=== PATIENT | male | born 1990 | race Caucasian/White ===

== ENCOUNTER → 2018-08-06 | Outpatient (CLI) | payer BC ==
--- NOTE | 2018-08-06 18:48 | RADIOLOGY REPORT (SQ) ---
EXAM DESCRIPTION: U/S ABDOMEN LIMITED W/O DOP COMPLETED DATE/TIME: 08/06/2018 6:30 pm REASON FOR STUDY: R10.11 RIGHT UPPER QUADRANT PAIN R11.2 NAUSEA WITH VOMITING, UNSPECIFIED R10.11 R IGHT UPPER QUADRANT PAIN R11.2 NAUSEA WITH VOMITING, UNSPECIFIED COMPARISON: None. TECHNIQUE: Dynamic and static grayscale images acquired of the abdomen and recorded on PACS. Additio nal selected color Doppler and spectral images recorded. LIMITATIONS: None. FINDINGS: PANCREAS: No masses. Visualized pancreatic duct normal caliber. LIVER: No masses. Echotexture normal. LIVER VASCULATURE: Normal directional flow of the main portal vein and hepatic veins. GALLBLADDER: Multiple large gallstones. Contracted gallbladder. ULTRASOUND-DETECTED MÁRQUEZ'S SIGN: Negative. INTRAHEPATIC DUCTS AND COMMON DUCT: CBD and intrahepatic ducts normal caliber. No filling defects. INFERIOR VENA CAVA: Not imaged. AORTA: No aneurysm. RIGHT KIDNEY: Normal size, 10.1 cm. Normal echogenicity. No solid or suspicious masses. No hydroneph rosis. No calcifications. PERITONEAL AND RIGHT PLEURAL SPACE: No ascites or effusions. OTHER: No other significant findings. IMPRESSION: Contracted gallbladder with stones. TECHNICAL DOCUMENTATION: JOB ID: [id number] [employer]- All Rights Reserved Reading location - IP/workstation name: [email or web address]
== END ==
LOC: RAD 17:42
PROVIDERS: ATTEND Internal Medicine Gastroenterology
DX: R10.11 Right upper quadrant pain (principal); R11.2 Nausea with vomiting, unspecified
CPT/HCPCS: 76705

== ENCOUNTER 2018-08-07 09:49 | Day surgery (SDC) | payer BC ==
[2018-08-07] MEDS ORDERED: RINGERS SOLUTION,LACTATED 1,000 ML IV ONE (10:16)
--- NOTE | 2018-08-07 10:36 | ER Document Report ---
ED General - General Chief Complaint: Abdominal Problem Stated Complaint: NAUSEA Time Seen by Provider: 08/07/18 10:06 Mode of Arrival: Ambulatory Information source: Patient TRAVEL OUTSIDE OF THE [place] IN LAST 30 DAYS: No - HPI Patient complains to provider of: abdominal pain Onset: Other - 28-year-old male without medical problems that presents for evaluation of pain in the right upper quadrant of the abdomen. He currently is coming from the radiology department after his who is a nurse helped him obtain an ultrasound of the abdomen. They gone in because for the last several weeks he said recurrent abdominal pain and vomiting and now has a dull boring nausea through the night making it impossible for him to sleep or eat. Pain is worse in the right upper quadrant, worse after he eats. He denies any fevers or chills, does have looser bowel movements than usual. Has no surgical history , has no past medical history. Is not allergic to any medications, does not use any substances. - Related Data Allergies/Adverse Reactions: No Known Allergies Allergy (Unverified 08/07/18 09:50) Past Medical History - General Information source: Patient - Social History Smoking Status: Never Smoker Family History: None, Other - gallbladder disease Review of Systems - Review of Systems -: Yes All other systems reviewed and negative Physical Exam - Vital signs Vitals: Temp Pulse Resp BP Pulse Ox 98 F 65 18 140/80 H 100 08/07/18 09:52 08/07/18 09:52 08/07/18 09:52 08/07/18 09:52 08/07/18 09:52 - General General appearance: Appears well In distress: None - HEENT Head: Normocephalic Eyes: Normal Conjunctiva: Normal Cornea: Normal Extraocular movements intact: Yes Eyelashes: Normal Pupils: PERRL - Respiratory Respiratory status: No respiratory distress Chest status: Nontender Breath sounds: Normal Chest palpation: Normal - Cardiovascular Rhythm: Regular Heart sounds: Normal auscultation Murmur: No - Abdominal Inspection: Normal Distension: No distension Tenderness: Tender - Tender in the right upper quadrant - Back Back: Normal - Extremities General upper extremity: Normal inspection, Nontender, Normal ROM, Normal strength General lower extremity: Normal inspection, Nontender, Normal ROM, Normal strength - Neurological Neuro grossly intact: Yes Cognition: Normal Orientation: AAOx4 [place] Coma Scale Eye Opening: Spontaneous Marti Coma Scale Verbal: Oriented [place] Coma Scale Motor: Obeys Commands Marti Coma Scale Total: 15 Speech: Normal Cranial nerves: Normal Cerebellar coordination: Normal Motor strength normal: LUE, RUE, LLE, RLE - Psychological Associated symptoms: Normal affect Course - Re-evaluation Re-evalutation: 08/07/18 11:20 This healthy 28-year-old presents for concern of biliary colic and gallstones. On examination he is tender in the right upper quadrant, his ultrasound obtained prior to arrival does demonstrate what appears to be stones in the gallbladder. Have contacted on-call surgeon Dr. Cardona who agrees to evaluate the patient, have obtained CBC and CMP as well which not demonstrate any obvious leukocytosis or liver function abnormalities. Believe this is likely biliary colic related to his gallstones. Will defer disposition determination to the consulting surgeon. 08/07/18 17:34 Surgeon agrees for evaluation endoscopy believes that this is likely not related to his gallbladder but will follow this patient up. - Vital Signs Vital signs: Temp Pulse Resp BP Pulse Ox 98.3 F 87 18 134/81 H 100 08/07/18 14:10 08/07/18 14:40 08/07/18 14:40 08/07/18 14:40 08/07/18 14:40 - Laboratory Result Diagrams: 08/07/18 10:30 08/07/18 10:30 Discharge - Discharge Clinical Impression: Biliary colic Gallstone Qualifiers: Cholecystitis presence: without cholecystitis Biliary obstruction: without biliary obstruction Qualified Code(s): K80.20 - Calculus of gallbladder without cholecystitis without obstruction Condition: Stable Disposition: SAME DAY SURGERY Admitting Provider: Surgicalist Unit Admitted: OR
[2018-08-07 10:48] LABS: ABSOLUTE EOSINOPHILS # (AUTO) 0.3 10^3/uL (0.0-0.6); ABSOLUTE LYMPHOCYTES (AUTO) 1.8 10^3/uL (0.5-4.7); ABSOLUTE MONOCYTES (AUTO) 0.5 10^3/uL (0.1-1.4); ABSOLUTE NEUT (AUTO) 3.4 10^3/uL (1.7-8.2); BASOPHILS % (AUTO) 0.2 % (0-2); EOSINOPHILS % (AUTO) 5.3 % (0-6); HEMATOCRIT 45.5 % (37.9-51.0); HEMOGLOBIN 15.8 g/dL (13.5-17.0); MEAN CORPUSCULAR HEMOGLOBIN 29.8 pg (27.0-33.4); MEAN CORPUSCULAR HGB CONC 34.6 g/dL (32.0-36.0); MEAN CORPUSCULAR VOLUME 86 fl (80-97); MONOCYTES % (AUTO) 8.7 % (3-13); PLATELET COUNT 212 10^3/uL (150-450); RED BLOOD COUNT 5.29 10^6/uL (4.35-5.55); RED CELL DISTRIBUTION WIDTH 12.9 % (11.5-14.0); SEGMENTED NEUTROPHILS % (AUTO) 55.8 % (42-78); TOTAL CELLS COUNTED % (AUTO) 100 %; WHITE BLOOD COUNT 6.1 10^3/uL (4.0-10.5)
[2018-08-07 11:10] LABS: ALANINE AMINOTRANSFERASE 28 U/L (21-72); ALBUMIN 4.6 g/dL (3.5-5.0); ALKALINE PHOSPHATASE 94 U/L (38-126); ANION GAP 16 (5-19); ASPARTATE AMINO TRANSFERASE 18 U/L (17-59); BILIRUBIN,DIRECT 0.2 mg/dL (0.0-0.4); BILIRUBIN,TOTAL 0.7 mg/dL (0.2-1.3); BLOOD UREA NITROGEN 16 mg/dL (7-20); CALCIUM 9.8 mg/dL (8.4-10.2); CARBON DIOXIDE 25 mmol/L (22-30); CHLORIDE 102 mmol/L (98-107); GLUCOSE 108 mg/dL (75-110); LIPASE 57.7 U/L (23-300); POTASSIUM 3.6 mmol/L (3.6-5.0); SODIUM 143.3 mmol/L (137-145); TOTAL PROTEIN 7.2 g/dL (6.3-8.2)
[2018-08-07] MEDS ORDERED: ONDANSETRON HCL INJ/PF 4 MG/2 ML SDV ONE (12:59)
[2018-08-07] MEDS ORDERED: DIPHENHYDRAMINE HCL 50 MG/ML VIAL ONE (12:59)
[2018-08-07] MEDS ORDERED: EPINEPHRINE INJ 1 MG/10 ML DISP.SYRIN ONE (13:00)
[2018-08-07] MEDS ORDERED: NALOXONE HCL INJ/PF 0.4 MG/1 ML SDV ONE (13:00)
[2018-08-07] MEDS ORDERED: GLUCAGON,HUMAN RECOMB 1 MG INJ ONE (13:00)
[2018-08-07] MEDS ORDERED: FLUMAZENIL INJ 0.5 MG/5 ML VIAL ONE (13:00)
--- NOTE | 2018-08-07 13:01 | PDOC H&P ---
History of Present Illness Admission Date/PCP: NAYELY KEY MD Patient complains of: epigastric pain, emesis History of Present Illness: ADALID BURLESON is a 28 year old male with a 1 year hx of epigastric abdominal pain nausea, postprandial or at night, symptoms worsened yesterday and this morning he came ot ER. He presented anurag the ER yesterday and an US of he GB was done with the findings of multiple stones. Currently, he is asymptomatic. Social History Smoking Status: Never Smoker Family History Parental Family History Reviewed: No Children Family History Reviewed: No Sibling(s) Family History Reviewed.: No Medication/Allergy Allergies/Adverse Reactions: No Known Allergies Allergy (Unverified 08/07/18 09:50) Physical Exam Vital Signs: Temp Pulse Resp BP Pulse Ox 98 F 65 18 140/80 H 100 08/07/18 09:52 08/07/18 09:52 08/07/18 09:52 08/07/18 09:52 08/07/18 09:52 Intake & Output 08/06/18 08/07/18 08/08/18 06:59 06:59 06:59 Weight 75.8 kg General appearance: PRESENT: no acute distress Head exam: PRESENT: atraumatic Eye exam: PRESENT: EOMI Mouth exam: PRESENT: moist, neck supple Neck exam: PRESENT: full ROM Respiratory exam: PRESENT: chest wall tenderness Cardiovascular exam: PRESENT: RRR GI/Abdominal exam: PRESENT: Soto's sign - negative, soft Extremities exam: PRESENT: full ROM Musculoskeletal exam: PRESENT: full ROM Neurological exam: PRESENT: oriented to person, oriented to place, CN II-XII grossly intact Skin exam: PRESENT: warm Results Laboratory Results: 08/07/18 10:30 08/07/18 10:30 08/07/18 08/07/18 10:30 10:30 WBC 6.1 RBC 5.29 Hgb 15.8 Hct 45.5 MCV 86 MCH 29.8 MCHC 34.6 RDW 12.9 Plt Count 212 Seg Neutrophils % 55.8 Lymphocytes % 30.0 Monocytes % 8.7 Eosinophils % 5.3 Basophils % 0.2 Absolute Neutrophils 3.4 Absolute Lymphocytes 1.8 Absolute Monocytes 0.5 Absolute Eosinophils 0.3 Absolute Basophils 0.0 Sodium 143.3 Potassium 3.6 Chloride 102 Carbon Dioxide 25 Anion Gap 16 BUN 16 Creatinine 1.11 Est GFR ( Amer) > 60 Est GFR (Non-Af Amer) > 60 Glucose 108 Calcium 9.8 Total Bilirubin 0.7 AST 18 ALT 28 Alkaline Phosphatase 94 Total Protein 7.2 Albumin 4.6 Lipase 57.7 Assessment & Plan - Diagnosis (2) Gallstone Qualifiers: Cholecystitis presence: without cholecystitis Biliary obstruction: without biliary obstruction Qualified Code(s): K80.20 - Calculus of gallbladder without cholecystitis without obstruction Is this a current diagnosis for this admission?: Yes - Plan Summary Plan Summary: A/ Epigatric pain with emesis Blood work WNL Negative lipase Physical exam unremarkable US of the gallbladder shows gallstones P/ due to the discrepancy between negative physical exam, no symptoms at the time of the interview, and US findings, I do not believe the patient suffers from biliary colic as other causes for his pain should be entertained including gastritis, duodenitis, GERD, esophageal spasm, tumors, and so forth. PLAN: EGD with biopsy as outpatient today Start a trial of antiacids and Carafate x 2 weeks PUD Diet (no alcohol, smoking, acidy or carbonated fluids, chocolate, tomatoes) Follow up in the office with Dr. Vidal Patient might need CT scan A/P and / or Esophagogram once EGD biopsies are available and negative and if no improvemenent after antiacid and Carafate trial. Laparoscopic cholecystectomy should be last resort in this patient, as other causes for the pain should be excluded first.
[2018-08-07] MEDS: MIDAZOLAM 2 MG/2 ML INJ ONE ×3 (13:25→13:36)
[2018-08-07] MEDS: FENTANYL CITRATE INJ/PF 100 MCG/2 ML AMPUL ONE ×3 (13:27→13:34)
--- NOTE | 2018-08-07 13:59 | Operative Report ---
Nonrecallable Operative Report DATE OF SURGERY: 08/07/18 PREOPERATIVE DIAGNOSIS: epigastric pain with emesis. cholelithiasis POSTOPERATIVE DIAGNOSIS: same. Bile reflux. GE junction polyp OPERATION: EGD with biopsy SURGEON: CHAY PETERS ANESTHESIA: Moderate Sedation - provided by Dr. Peters: 4 mg IVP Versed, 125 mcg IVP Fentanyl TISSUE REMOVED OR ALTERED: biopsy of duodenum, antrum, and GE junction polyp COMPLICATIONS: none ESTIMATED BLOOD LOSS: none INTRAOPERATIVE FINDINGS: Normal stomach and duodenum. Large amount of bile in stomach. GE junctikon polyp PROCEDURE: see dictation
[2018-08-07 15:04] VITALS: BP 134/81
--- NOTE | 2018-08-10 13:30 | OPERATIVE REPORT E ---
Operative Report NAME: ADALID BURLESON : 1990 AGE: 28Y DATE OF SURGERY: 08/07/2018 ROOM: PREOPERATIVE DIAGNOSIS: 1. Epigastric pain. 2. Cholelithiasis. 3. Bile reflux. 4. GE junction polyp. POSTOPERATIVE DIAGNOSIS: 1. Epigastric pain. 2. Cholelithiasis. 3. Bile reflux. 4. GE junction polyp. PROCEDURE: EGD with biopsies SURGEON: CHAY PETERS M.D. PRODUCTION COOK: None. BLEEDING COMPLICATION: None. ANESTHESIA: 4 mg of Versed, 125 mcg of fentanyl intravenous provided by Dr. Peters. COMPLICATIONS: None. INDICATION AND FINDINGS: This healthy 28-year-old male with a 1-year history of epigastric pain, nausea, emesis. The symptoms increased yesterday. He came to the emergency room yesterday. An ultrasound of the gallbladder was done revealed cholelithiasis. The patient presented again today with more intense epigastric pain. Blood work was done, it revealed a normal liver profile and CBC and normal lipase. Physical exam was unremarkable. Due to the lack of physical findings and normal blood work the decision was made to perform EGD initially to rule out the possibility of gastric esophageal pathology. DESCRIPTION OF PROCEDURE: It was done in the operating room. The patient was placed in a lateral decubitus. Anesthesia provided by Dr. Peters as above. The gastroscope was inserted without resistance through the mouth, esophagus, stomach, duodenum. Preparation was good. The duodenum appeared to be free from disease. The stomach was filled with a moderate amount of bile. This was then retroflexed. No lesions were noted in the left lesser curvature in the fundus. No mass, polyps, strictures, indentations, mucosal changes, ulcerations were noted either in the stomach or in duodenum. The instrument was then withdrawn into the esophagus; in the GE junction a small polyp was identified and this was removed with a biopsy. The instrument was then slowly withdrawn into the esophagus, no lesions were noticed, and then removed from the patient without complication. The patient tolerated the procedure well and was transferred to the recovery room in satisfactory condition. DICTATING PHYSICIAN: CHAY PETERS M.D. [id number] PHY#: [id number] ID: [id number] JOB#: [id number] ACCT: [id number] cc:CHAY PETERS M.D. > DAIANA
== END 2018-08-07 14:55 | disposition home or self-care (01) ==
LOC: ER 09:49 → SC 12:49
PROVIDERS: ATTEND Surgery
DX: K29.80 Duodenitis without bleeding (principal); K29.50 Unspecified chronic gastritis without bleeding; K25.9 Gastric ulcer, unspecified as acute or chronic, without hemorrhage or perforation; K80.20 Calculus of gallbladder without cholecystitis without obstruction; K21.9 Gastro-esophageal reflux disease without esophagitis
CPT/HCPCS: 99285; 96360; 43239; 36415; 83690; 85025; 80053; 88342 ×2; 88305 ×2; 88312 ×2; J2250; J3010; J7120; J0171; J1200; J1610; J2310; J2405; J3490

== ENCOUNTER 2018-08-13 06:02 | Day surgery (SDC) | payer BC ==
[2018-08-11 10:33] LABS: HEMOGLOBIN 15.2 g/dL (13.5-17.0); MEAN CORPUSCULAR HEMOGLOBIN 29.6 pg (27.0-33.4); MEAN CORPUSCULAR HGB CONC 34.6 g/dL (32.0-36.0); MEAN CORPUSCULAR VOLUME 86 fl (80-97); PLATELET COUNT 209 10^3/uL (150-450); RED BLOOD COUNT 5.14 10^6/uL (4.35-5.55); RED CELL DISTRIBUTION WIDTH 12.6 % (11.5-14.0); WHITE BLOOD COUNT 5.8 10^3/uL (4.0-10.5)
[2018-08-11 10:56] LABS: ALANINE AMINOTRANSFERASE 35 U/L (21-72); ALBUMIN 4.6 g/dL (3.5-5.0); ALKALINE PHOSPHATASE 73 U/L (38-126); ANION GAP 9 (5-19); ASPARTATE AMINO TRANSFERASE 25 U/L (17-59); BILIRUBIN,DIRECT 0.2 mg/dL (0.0-0.4); BILIRUBIN,TOTAL 0.6 mg/dL (0.2-1.3); BLOOD UREA NITROGEN 15 mg/dL (7-20); CALCIUM 9.7 mg/dL (8.4-10.2); CARBON DIOXIDE 31 mmol/L (22-30); CHLORIDE 104 mmol/L (98-107); GLUCOSE 98 mg/dL (75-110); POTASSIUM 3.9 mmol/L (3.6-5.0); SODIUM 144.2 mmol/L (137-145); TOTAL PROTEIN 7.1 g/dL (6.3-8.2)
[~2018-08-13 06:02] MED LIST: ACETAMINOPHEN 325 MG TABLET PO PRN; CEFOXITIN SODIUM 2 GM in DEXTROSE 5%-WATER 100 ML IV PRN; IBUPROFEN 800 MG in NORMAL SALINE 250 ML IV PRN; IBUPROFEN INJ 800 MG/8 ML VIAL IV PRN; LACTATED RINGERS 1000 ML IV PRN; LIDOCAINE 0.5% INJ-PF (5 MG/ML) 50 ML SDV SUBCUT PRN
[2018-08-13] MEDS ORDERED: BUPIVACAINE HCL 0.5 % INJ/PF 30 ML SDV ONE (06:34)
[2018-08-13] MEDS ORDERED: HYDROMORPHONE HCL INJ/PF 2 MG/ML AMPULE ONE (07:01)
[2018-08-13] MEDS ORDERED: FENTANYL CITRATE INJ/PF 250 MCG/5 ML AMPULE ONE (07:01)
[2018-08-13] MEDS ORDERED: MIDAZOLAM 2 MG/2 ML INJ ONE (07:01)
[2018-08-13] MEDS ORDERED: PROPOFOL INJ 200 MG/20 ML VIAL IV ONE (07:01)
[2018-08-13] MEDS ORDERED: ACETAMINOPHEN 1,000 MG/100 ML RTUPB IV ONE (07:01)
[2018-08-13] MEDS ORDERED: FENTANYL CITRATE INJ/PF 100 MCG/2 ML AMPUL IV PRN ×3 (08:54)
[2018-08-13] MEDS ORDERED: MEPERIDINE HCL/PF INJ 25 MG/1 ML DISP.SYRIN IV PRN (08:54)
[2018-08-13] MEDS ORDERED: MORPHINE SULFATE 10 MG/ML INJ IV PRN (08:54)
[2018-08-13] MEDS ORDERED: PROMETHAZINE HCL INJ 25 MG/1 ML VIAL IV PRN (08:54)
[2018-08-13] MEDS ORDERED: DIPHENHYDRAMINE HCL 50 MG/ML VIAL IV PRN (08:54)
[2018-08-13] MEDS ORDERED: ONDANSETRON HCL INJ/PF 4 MG/2 ML SDV ONE (09:03)
[2018-08-13] MEDS ORDERED: DEXAMETHASONE SOD PHOSPHATE INJ 4 MG/1 ML VIAL ONE (09:03)
[2018-08-13] MEDS ORDERED: NEOSTIGMINE METHYLSULFATE 10 MG/10 ML VIAL ONE (09:03)
[2018-08-13] MEDS ORDERED: GLYCOPYRROLATE 1 MG/5 ML SYRINGE ONE (09:03)
[2018-08-13] MEDS ORDERED: ROCURONIUM BROMIDE INJ 50 MG/5 ML VIAL IV ONE (09:03)
[2018-08-13] MEDS ORDERED: SUCCINYLCHOLINE CHLORIDE INJ 200 MG/10 ML VIAL ONE (09:03)
[2018-08-13] MEDS ORDERED: HYDROCODONE/ACETAMINOPHEN 5-325 MG TABLET PO PRN (09:42)
--- NOTE | 2018-08-13 09:55 | Discharge Summary ---
Discharge Summary (SDC) - Discharge Final Diagnosis: Chronic cholecystitis Date of Surgery: 08/13/18 Discharge Date: 08/13/18 Condition: Stable Treatment or Instructions: Discharge home. Diet as tolerated. Activity: No lifting greater than 10 pounds x 2 weeks. Follow-up with me in 7-10 days. Okay to shower starting Friday. No tub baths or swimming pools times 2 weeks. [place] 5/325 mg p.o. every 6 hours as needed pain. Discharge Diet: As Tolerated Respiratory Treatments at Home: Deep Breathing/Coughing, Incentive Spirometer Discharge Activity: No Lifting Over 10 Pounds Home Care Assistance: None Needed Report the Following to Your Physician Immediately: Shortness of Breath, Nausea , Vomiting, Increase in Pain, Yellow Skin, Fever over 101 Degrees, Unusual Bleeding, Redness, Swelling, Warmth, Increased Soreness
--- NOTE | 2018-08-13 09:59 | Operative Report ---
Nonrecallable Operative Report DATE OF SURGERY: 08/13/18 PREOPERATIVE DIAGNOSIS: Symptomatic cholelithiasis. POSTOPERATIVE DIAGNOSIS: 1. Symptomatic cholelithiasis. 2. Chronic cholecystitis. OPERATION: Laparoscopic cholecystectomy. SURGEON: AGUSTO ALFONSO ANESTHESIA: GA TISSUE REMOVED OR ALTERED: Gallbladder COMPLICATIONS: None apparent ESTIMATED BLOOD LOSS: Minimal PROCEDURE: Drains/implants: None. Procedure in detail: After informed consent was obtained, the patient was brought in the operating room and laid in the supine position. The area of the abdomen was prepped and draped in normal sterile fashion. A 15 blade scalpel was used to create an umbilical incision. This was deepened using sharp and blunt dissection. The cicatrix was identified, grasped with a Asif clamp, and retracted upwards. The linea alba fascia was incised sharply. The abdomen was entered sharply. The balloon trocar was inserted, and pneumoperitoneum was achieved. A subxiphoid 5 mm port was then placed under direct laparoscopic visualization. 2 more 5 mm ports were placed in the right upper quadrant in similar fashion. Atraumatic graspers were placed in the 5 mm ports. The gallbladder was retracted cephalad and laterally. Dissection was begun in the triangle of [place]ot. The cystic duct and cystic artery were fully visualized and skeletonized , seeing the liver through the triangle. Once the critical view of safety was obtained, the cystic duct and cystic artery were clipped and cut with laparoscopic instruments. The gallbladder was then removed from the liver using Bovie electrocautery. The gallbladder was grasped with a large clamp and pulled out through the umbilicus. The camera was reinserted. The abdomen was inspected. The hilum was free of any leakage of blood or bile. Once this was confirmed, the 5 mm trochars were removed under direct laparoscopic visualization. The infra umbilical trocar was removed, and pneumoperitoneum was relieved. The infraumbilical fascia was closed using 0 Vicryl suture in [id number] fashion. The overlying skin was closed using 4-0 Vicryl Rapide suture in subcuticular fashion. All sponge, instrument, and needle counts were correct x2. Dressings were placed and the procedure was concluded. Condition: Stable.
[2018-08-13] MEDS ORDERED: HYDROCODONE/ACETAMINOPHEN 5-325 MG (6 TAB/ER DISP) PO ONE (10:05)
[2018-08-13] MEDS ORDERED: HYDROCODONE/ACETAMINOPHEN 5-325 MG TABLET ONE (10:07)
[2018-08-13 11:16] VITALS: BP 137/86
[2018-08-13] MEDS ORDERED: IBUPROFEN 800 MG TABLET PO SCH (12:00)
== END 2018-08-13 11:05 | disposition home or self-care (01) ==
LOC: OROUT 06:02
PROVIDERS: ATTEND Surgery
DX: K80.10 Calculus of gallbladder with chronic cholecystitis without obstruction (principal)
CPT/HCPCS: 36415; 85027; 80076; 80048; 88304 ×2; 47562; J2250; J3490 ×3; J1100; J0694; J3010; J1170; J0330; J2405; J7050; J2704; J0131; J1741; 790